=== PATIENT | male | born 1975 | race Hispanic/Latino ===

== ENCOUNTER 2024-04-02 20:33 | Emergency (ER) | payer OTHER ==
[~2024-04-02] VITALS: Ht 165.1 cm; Wt 111.6 kg
[2024-04-02 20:41] VITALS: PULSE 95; RESP 24; TEMP 98.2; O2SAT 99
[2024-04-02] MEDS: KETOROLAC TROMETHAMINE 60 MG/2 ML VIAL IM ONE (21:03)
[2024-04-02] MEDS ORDERED: ULTRAM 50MG50 MG PO (21:48)
== END 2024-04-02 21:55 | disposition home or self-care (01) ==
LOC: ER 20:37
DX: M25.562 Pain in left knee (principal); R20.2 Paresthesia of skin; X50.1XXA Overexertion from prolonged static or awkward postures, initial encounter; I10 Essential (primary) hypertension; E11.9 Type 2 diabetes mellitus without complications; E78.5 Hyperlipidemia, unspecified
CPT/HCPCS: 73562; 99283; J1885

== ENCOUNTER 2024-12-01 23:02 | Emergency (ER) | payer SELFPAY ==
[~2024-12-01] VITALS: Ht 165.1 cm; Wt 102.3 kg
[~2024-12-01 23:02] MED LIST: ULTRAM 50MG50 MG PO
[2024-12-01 23:08] VITALS: TEMP 98.3
[2024-12-02] MEDS: FAMOTIDINE 20 MG/2 ML VIAL IV STA (00:14)
[2024-12-02] MEDS: ASPIRIN 81 MG CHEW TAB PO ONE (00:15)
[2024-12-02] MEDS: MAGNESIUM/ALUMINUM/SIMETHICONE 30 ML UDC PO ONE (00:16)
[2024-12-02] MEDS ORDERED: LISINOPRIL10 MG PO (00:19)
[2024-12-02] MEDS ORDERED: METFORMIN HCL500 M2 PO (00:19)
[2024-12-02] MEDS ORDERED: ATORVASTATIN CA10 MG PO (00:19)
[2024-12-02] MEDS ORDERED: HYDROXYZINE HCL25 MG PO (00:28)
[2024-12-02] MEDS ORDERED: PEPCID20 MG PO (00:29)
[2024-12-02] MEDS: LORAZEPAM INJ 2 MG/ML VIAL IV ONE (00:34)
[2024-12-02 00:45] VITALS: PULSE 99; RESP 20; O2SAT 95
== END 2024-12-02 00:56 | disposition home or self-care (01) ==
LOC: FSED 23:08
DX: R00.2 Palpitations (principal); R07.89 Other chest pain; F41.9 Anxiety disorder, unspecified; F43.9 Reaction to severe stress, unspecified; I10 Essential (primary) hypertension; E11.65 Type 2 diabetes mellitus with hyperglycemia; E78.5 Hyperlipidemia, unspecified; R94.31 Abnormal electrocardiogram [ECG] [EKG]
CPT/HCPCS: 71046; 80053; 80307; 81003; 84484; 85025; 85379; 85610; 93005; 96374; 99284; J1308; J2060